=== PATIENT | male | born 1955 | race Caucasian/White ===

== ENCOUNTER 2020-11-03 14:15 | Emergency (ER) | payer BC, SELFPAY ==
[2020-11-03] VITALS (8 sets, daily range): BP systolic 121–143; BP diastolic 74–86; PULSE 66–87; RESP 14–22; TEMP 37.1; O2SAT 97–100
--- NOTE | ~2020-11-03 | XR_ITS ---
EXAMINATION: XR chest 2V EXAM DATE: 11/03/2020 14:48 INDICATION: Near syncope, upper right chest pressure. TECHNIQUE: Frontal and lateral projections of the chest obtained and reviewed. There is no prior yaniv dy for comparison. FINDINGS: The lungs are clear. There are no pleural effusions. The cardiomediastinal silhouette is within normal limits. There is no pneumothorax suspected. The bones and soft tissues are unremarkab le. IMPRESSION: No acute cardiopulmonary findings. Reviewed, dictated and finalized at location B.
--- NOTE | 2020-11-03 14:38 | ECG_ITS ---
Measurements Intervals [place] Rate: 83 P: 36 NM: 145 QRS: 5 QRSD: 94 T: 11 QT: 359 QTc: 423 Interpretive Statements SINUS RHYTHM DELAYED PRECORDIAL R/S TRANSITION BORDERLINE T WAVE ABNORMALITY- INFERIOR LEADS BASELINE ARTIFACT- I, II, III, AVR, AVL, AVF, V2-V6 BORDERLINE ECG Electronically Signed On 11-03-2020 15:38:22 CDT by Abimael Soria D.O.
[2020-11-03 14:55] LABS: Hematocrit 43.3 % (42.0-52.0); Hemoglobin 15.3 g/dL (14.0-18.0); Mean Corpuscular HGB Conc 35.3 g/dl (32-36); Mean Corpuscular Hemoglobin 33.3 pg (26-34); Mean Corpuscular Volume 94.1 fl (80-100); Mean Platelet Volume 9.7 fl (7.4-10.4); Platelet Count Result 214 k/mm3 (150-375); Red Cell Distribution Width 13.1 % (11.5-14.5); White Blood Count 8.1 K/mm3 (4.5-10.0)
[2020-11-03 15:03] LABS: INR 0.9; Prothrombin Time 12.5 Seconds (11.1-14.7)
[2020-11-03 15:04] LABS: Partial Thromboplastin Time 28.7 SECONDS (22.3-36.8)
[2020-11-03 15:07] LABS: D Dimer 0.31 ug/mL (<0.48)
--- NOTE | 2020-11-03 15:07 | ED.GENADULT ---
HPI - General Adult General Chief complaint: Shortness of Breath/Dyspnea Stated complaint: SOB, lost hearing , almost fainted Time Seen by Provider: 11/03/20 14:18 Source: patient and RN notes reviewed Mode of arrival: ambulatory Limitations: no limitations History of Present Illness HPI narrative: This is 64 year old male with history of GERD, paroxysmal atrial fibrillation who presents for evaluation of a near syncopal episode. Patient states he was playing golf early today when he had an episode in which he felt off. He states he was standing and he suddenly felt like he could not hear and that every thing was closing in. He reports feeling short of breath at that time as well. He denies having heart racing or palpitation. He states this episode was very brief. He went to his car to sit down. He states he feels fine now but his daughter recommended that he come to ER . He denies chest pain during this episode. He denies any sob now. He reports his mouth feels dry due to starting glycopyrrolate for GERD. He states 13 years ago he was admitted to hospital for brief episode of atrial fibrillation but he denies any issues since. He takes aspirin 81 mg. Related Data Home Medications Medication Instructions Recorded Confirmed aspirin [Adult Aspirin EC Low 81 mg PO DAILY 11/03/20 Strength] atorvastatin 11/03/20 glycopyrrolate 11/03/20 [id number]-vit K tablet PO 11/03/20 [Adults Multivitamin] omeprazole 11/03/20 Allergies Allergy/AdvReac Type Severity Reaction Status Date / Time No Known Allergies Allergy Mild Verified 11/03/20 14:39 Review of Systems Review of Systems: All systems reviewed & are unremarkable except as noted in HPI and below PMFSH Past Medical History Medical History (Updated 11/03/20 @ 18:19 by Mabel Douglas MD) Hyperlipidemia Paroxysmal atrial fibrillation Surgical History Surgical History (Updated 11/03/20 @ 15:17 by Mabel Douglas MD) H/O hernia repair Social History Social History (Updated 11/03/20 @ 15:16 by Mabel Douglas MD) Smoking status: Never smoker Exam Narrative: GENERAL: Well-appearing, well-nourished, and in no acute distress. HEAD: Normocephalic, atraumatic EYES: PERRLA and EOMI, conjunctiva clear without discharge EARS: TM's clear bilaterally without erythema or dullness NOSE: Nares clear, no rhinorrhea or epistaxis THROAT:Mucous membranes moist, Oropharynx normal without erythema, exudate, peritonsillar swelling or fluctuance NECK: Supple, without lymphadenopathy or mass RESPIRATORY: No respiratory distress, Airway patent, Respirations non-labored, Clear to auscultation without rales, rhonchi or wheeze HEART: Regular rate and rhythm. No murmur heard. Normal peripheral pulses. ABDOMEN: Soft, nontender, nondistended, normal active bowel sounds. No masses. No rebound or guarding, No organomegaly. EXTREMITIES: No edema, normal strength with full range of motion. SKIN: Warm, dry, normal color without rash NEURO: Alert and oriented x3. CN 2-12 grossly intact. No focal deficits. PSYCH: Normal mood and affect. Course Reevaluation(s) Reevaluation #1: Patient's labs have been unremarkable. He has history of atrial fibrillation. I think he had had near syncopal episode. He did not lose consciousness. He has a holter monitor in place to look for arrhythmia that may have been caused glyccopyrolate. He will stop this medication. He has julio c score of 0 so he will just need to continue aspirin. He has appointment with PCP at 10.45 am on Friday Date: 11/03/20 Time: 18:15 Consultations Consultation #1: I spoke with Dr. Roger's medical social consultant. She will notify him of patient ED visit and she will make an appointment for patient on Friday. Date: 11/03/20 Time: 15:31 Vital Signs Vital signs: Vital Signs Temperature 98.8 F 11/03/20 14:25 Pulse Rate 87 11/03/20 14:25 Respiratory Rate 20 11/03/20 14:25 Blood Pres
[2020-11-03 15:11] LABS: Alanine Aminotransferase 35 U/L (4-50); Albumin Level 4.8 g/dL (3.5-5.1); Alkaline Phosphatase 71 U/L (38-126); Anion Gap 13 mmol/L (8-16); Aspartate Amino Transferase 26 U/L (17-59); Blood Urea Nitrogen 15 mg/dL (9-20); Calcium 9.7 mg/dL (8.4-10.2); Carbon Dioxide 23 mmol/L (22-30); Chloride 102 mmol/L (98-107); Estimated CRCL calculation 62 ml/min; Estimated Glomerular Filt Rate > 60; Glucose 115 mg/dL (65-110); Magnesium 1.9 mg/dL (1.6-2.3); Potassium 4.3 mmol/L (3.4-5.0); Sodium 138 mmol/L (137-145)
[2020-11-03 15:23] LABS: Troponin I < 0.012 ng/mL (0.000-0.034)
[2020-11-03 15:28] LABS: Band Neutrophils Percent 4 % (0-6); Lymphocytes Absolute Manual 0.56 K/mm3 (1.1-4.5); Monocytes Absolute Manual 0.64 K/mm3 (0.1-0.90); Monocytes Percent Manual 8 % (3-9); Neutrophils Absolute Manual 6.88 K/mm3 (1.3-6.7); Neutrophils Percent Manual 81 % (46-73); Platelet Estimate Adequate (Adequate); Total Cells Counted 100
[2020-11-03 15:52] LABS: Add Urine Microscopic? YES; Appearance Urine Clear (Clear); Bilirubin Urine Negative (Negative); Blood Urine Negative (Negative); Color Urine Yellow (Yellow); Glucose Urine UA Negative (Negative); Ketones Urine Negative (Negative); Leukocyte Esterase Ur Negative LEU/UL (Negative); Mucus Urine Moderate /lpf; Nitrate Urine Negative (Negative); Protein Urine Negative (Negative); RBC Urine 0-2 /hpf (0-2); WBC Urine 0-3 /hpf
[2020-11-03] MEDS: SODIUM CHLORIDE 0.9% IV 1,000 ML 999 ML IV CONT (16:00)
[2020-11-03 17:56] LABS: Troponin I < 0.012 ng/mL (0.000-0.034)
--- NOTE | 2020-11-07 12:24 | WPDHOLTEREM ---
Holter/Event Monitor Holter/Event Monitor Date of procedure: 11/03/20 Holter/Event Procedure: 48 Hr Holter Monitor Indications: Arrhythmia, near syncope Conclusion: 1. 48 hour holter monitor on 11/03/20. 2. Predominant rhythm is sinus rhythm. HR range 44-113 bpm; average HR 66 bpm. 3. There are 74 premature supraventricular complexes and 7 supraventricular couplets. There is one atrial tachycardia at 110 bpm lasting 4 beats at 02:05. 4. There are 179 premature ventricular complexes and ventricular couplet. No ventricular tachycardia. 5. No sinoatrial or atrioventricular blocks. No significant pauses greater than 2 seconds. 6. No symptoms available for correlation.
== END 2020-11-03 18:33 | disposition home or self-care (01) ==
PROVIDERS: Emergency Provider General Practice
DX: R55 Syncope and collapse (principal); I48.0 Paroxysmal atrial fibrillation; K21.9 Gastro-esophageal reflux disease without esophagitis; E78.5 Hyperlipidemia, unspecified; Z79.82 Long term (current) use of aspirin; R94.31 Abnormal electrocardiogram [ECG] [EKG]
CPT/HCPCS: 36415; 71046; 80053; 81001; 83735; 84484; 85025; 85380; 85610; 85730; 93005; 93225; 93226; 96360; 99284; J7030